=== PATIENT | female | born 1995 | race Caucasian/White ===

== ENCOUNTER 2021-05-14 19:30 | Emergency (ER) | payer OTHER ==
[~2021-05-14] VITALS: Ht 165.1 cm; Wt 59.1 kg
[2021-05-14 20:34] LABS: BASO # 0.1 x10^3/uL (0.0-0.2); BASO % 0 % (0-3); EOS % 0 % (0-3); HEMATOCRIT 36.3 % (36.0-47.0); HEMOGLOBIN 12.2 g/dL (12.0-15.5); LYMPH % 7 % (24-48); MEAN CORPUSCULAR HEMOGLOBIN 31 pg (25-35); MEAN CORPUSCULAR HGB CONC 34 g/dL (31-37); MEAN CORPUSCULAR VOLUME 92 fL (79-100); MONO # 0.8 x10^3/uL (0.0-1.1); MONO % 6 % (0-9); NEUT # 12.3 x10^3/uL (1.8-7.7); NEUT % 87 % (31-73); PLATELET COUNT 206 x10^3/uL (140-400); RED BLOOD COUNT 3.97 x10^6/uL (3.50-5.40); RED CELL DISTRIBUTION WIDTH 12.7 % (11.5-14.5); WHITE BLOOD COUNT 14.1 x10^3/uL (4.0-11.0)
[2021-05-14 20:40] LABS: CALCIUM 8.9 mg/dL (8.5-10.1); CREATININE 0.9 mg/dL (0.6-1.0); GFR 76.9; POTASSIUM 4.2 mmol/L (3.5-5.1)
[2021-05-14 20:47] LABS: ALBUMIN 4.1 g/dL (3.4-5.0); ALBUMIN/GLOBULIN RATIO 1.6 (1.0-1.7); TOTAL BILIRUBIN 0.2 mg/dL (0.2-1.0); TOTAL PROTEIN 6.6 g/dL (6.4-8.2)
[2021-05-14] MEDS: POLYVINYL ALCOHOL 1.4% OPHTH SOLUTION 15ML BOTTLE. OU PRN (22:00)
[2021-05-14 22:51] LABS: BARBITURATES NEG (NEG); BENZODIAZEPINES NEG (NEG); CANNABINOIDS NEG (NEG); COCAINE NEG (NEG); METHADONE NEG (NEG); OPIATES NEG (NEG); PHENCYCLIDINE NEG (NEG)
[2021-05-14 22:54] LABS: AMPHETAMINE/METHAMPHETAMINE NEG (NEG)
--- NOTE | 2021-05-14 23:17 | PHYS DOC ---
Past Medical History Past Medical History: Anxiety, Schizophrenia Past Surgical History: Tonsillectomy Smoking Status: Current Some Day Smoker Additional Information: VAPES OCCASIONALLY Alcohol Use: None Drug Use: None, Other (Ketamine) General Adult EDM: Chief Complaint: PSYCH EVALUATION HPI: HPI: Patient is a 25 year old female who presents with her mother for psychiatric evaluation. Patient and her mother both provide history. Earlier today, patient left her home and went swimming in the [place] behind her house. She states that the geese told her to do it, in order to "find an egg they had left" for her. She states also her "ancestors," her "people," encouraged her to swim in the like as well. Patient reports she lives with her mother, Man and "ashley White" Jose Elias. She states that Jose Elias is a "gimp," and "wants to sleep with" her. Patient reports she is 4 months , though mom is unsure how this would be possible. She had a test on her admission to [facility] recently, which was negative. Patient has no physical complaints of pain or otherwise at this time. Patient was seen about 3-1/2 weeks ago at [facility] and admitted to inpatient psychiatric facility for newly diagnosed schizophrenia. After her stay in the inpatient facility, she was discharged home with prescriptions for Haldol p.o. and hydroxyzine p.o. Patient states that the hydroxyzine did help her anxiety, however the Haldol was "too strong." Patient's mother did not force her to take medications, as the patient is an adult and mom wanted to make sure she was in control of her own medical decisions. At this time, patient does seek readmission to psychiatric facility for reevaluation and restabilization. She wishes to be placed on an antipsychotic other than Haldol, with which she may be more compliant. Review of Systems: Review of Systems: Constitutional: Denies fever, chills or generalized weakness Eyes: Denies change in visual acuity, visual field deficits or discharge HENT: Denies ear pain, nasal congestion or sore throat Respiratory: Denies cough or shortness of breath Cardiovascular: Denies chest pain, palpitations or edema GI: Denies abdominal pain, nausea, vomiting, bloody stools or diarrhea : Denies dysuria or hematuria Musculoskeletal: Denies back pain or joint pain Integument: Denies rash or other skin lesion Neurologic: Denies headache, focal weakness or sensory changes Psychiatric: See HPI Heart Score: C/O Chest Pain: No Current Medications: Current Medications Medications (Trade) Dose Ordered Sig/C[place]orro Start Time Stop Time Status Last Admin Dose Admin Glycerin/ Hypromellose/ Polyethylene (Artificial Tears) 1 drop PRN Q15MIN PRN 05/14/21 21:30 Allergies: Allergies: Allergies Coded Allergies Type Severity Reaction Last Updated Verified No Known Drug Allergies 05/14/21 No Physical Exam: PE: Constitutional: Well developed, well nourished, no acute distress, non-toxic appearance, patient is disheveled and has dirt diffusely across her body. HENT: Normocephalic, atraumatic, bilateral external ears normal, nose normal. Eyes: PERRL, EOMI, conjunctiva normal, no discharge. Nearly fully healed ecchymosis noted around left eye. Neck: Normal range of motion, no stridor. Cardiovascular: Heart regular rate and rhythm. No apparent murmurs, rubs or gallops. Lungs & Thorax: Equal thoracic expansion, no increased work of breathing, all lung akers clear to auscultation. Skin: Warm, dry, no erythema, no rash, no abrasions, no lacerations. Extremities: No cyanosis, no clubbing, ROM intact, no edema. Neurologic: Alert and oriented x4, letter and sensory function grossly intact, steady and symmetrical upright gait, no focal deficits noted. Psychologic: Flat affect, poor judgment, fair insight. Current Patient Data: Labs: Laboratory Tests Test 05/14/21 20:27 05/14/21 22:33 White Blood Count 14.1 x10^3/uL (4.0-11.0) H Red Blood Count 3.97 x10^6/uL (3.50-5.40) Hemoglobin 12.2 g/dL (12.0-15.5) Hematocrit 36.3 % (36.0-47.0) Mean Corpuscular Volume 92 fL (79-100) Mean Corpuscular Hemoglobin 31 pg (25-35) Mean Corpuscular Hemoglobin Concent 34 g/dL (31-37) Red Cell Distribution Width 12.7 % (11.5-14.5) Platelet Count 206 x10^3/uL (140-400) Neutrophils (%) (Auto) 87 % (31-73) H Lymphocytes (%) (Auto) 7 % (24-48) L Monocytes (%) (Auto) 6 % (0-9) Eosinophils (%) (Auto) 0 % (0-3) Basophils (%) (Auto) 0 % (0-3) Neutrophils # (Auto) 12.3 x10^3/uL (1.8-7.7) H Lymphocytes # (Auto) 1.0 x10^3/uL (1.0-4.8) Monocytes # (Auto) 0.8 x10^3/uL (0.0-1.1) Eosinophils # (Auto) 0.0 x10^3/uL (0.0-0.7) Basophils # (Auto) 0.1 x10^3/uL (0.0-0.2) Maternal Serum HCG Beta Subunit 1 mIU/mL (0-5) Sodium Level 144 mmol/L (136-145) Potassium Level 4.2 mmol/L (3.5-5.1) Chloride Level 107 mmol/L (98-107) Carbon Dioxide Level 27 mmol/L (21-32) Anion Gap 10 (6-14) Blood Urea Nitrogen 13 mg/dL (7-20) Creatinine 0.9 mg/dL (0.6-1.0) Estimated GFR (Cockcroft-Gault) 76.9 BUN/Creatinine Ratio 14 (6-20) Glucose Level 93 mg/dL (70-99) Calcium Level 8.9 mg/dL (8.5-10.1) Total Bilirubin 0.2 mg/dL (0.2-1.0) Aspartate Amino Transferase (AST) 20 U/L (15-37) Alanine Aminotransferase (ALT) 19 U/L (14-59) Alkaline Phosphatase 53 U/L (46-116) Total Protein 6.6 g/dL (6.4-8.2) Albumin 4.1 g/dL (3.4-5.0) Albumin/Globulin Ratio 1.6 (1.0-1.7) Urine Opiates Screen Neg (NEG) Urine Methadone Screen Neg (NEG) Urine Barbiturates Neg (NEG) Urine Phencyclidine Screen Neg (NEG) Urine Amphetamine/Methamphetamine Neg (NEG) Urine Benzodiazepines Screen Neg (NEG) Urine Cocaine Screen Neg (NEG) Urine Cannabinoids Screen Neg (NEG) Urine Ethyl Alcohol Neg (NEG) Laboratory Tests 05/14/21 20:27 Laboratory Tests 05/14/21 20:27 Vital Signs: Vital Signs Date Time Temp Pulse Resp B/P (MAP) Pulse Ox O2 Delivery O2 Flow Rate FiO2 05/14/21 22:15 80 21 132/72 (92) 100 Room Air 05/14/21 19:30 98.3 98.3 Course & Med Decision Making: Course & Med Decision Making Pertinent Labs and Imaging studies reviewed. (See chart for details) Patient is a 25-year-old female who presents for psychiatric evaluation after recently being diagnosed with schizophrenia and not taking medications prescribed. After talking to the patient and noticing flat affect, somewhat disheveled appearance, and hallucinations/delusions, Luis with psychiatric assessment team was paged. Pended a bedside evaluation of the patient and discussed case with her mother as well. At this time, patient meets criteria for inpatient admission. Lab work and assessment were faxed to [facility] psychiatric facility. Currently waiting on acceptance/bed placement. Patient care was transferred to Dr. Taylor, attending in emergency department. Thorough signout was provided. Kristian Disclaimer: Kristian Disclaimer: This electronic medical record was generated, in whole or in part, using a voice recognition dictation system. Departure Departure Impression: Primary Impression: Schizophrenia, unspecified Qualified Codes: F20.9 - Schizophrenia, unspecified [facility] Condition: STABLE HIRA SHER May 14, 2021 23:17
[2021-05-15] MEDS ORDERED: ZOLPIDEM 5 MG TABLET. PO ONE (02:04)
[2021-05-15] MEDS: POLYVINYL ALCOHOL 1.4% OPHTH SOLUTION 15ML BOTTLE. OU PRN (02:11)
[2021-05-15] MEDS: risperiDONE 0.25 MG TABLET. PO SCH (21:58)
[2021-05-15] MEDS: BENZTROPINE MESYLATE 1 MG TABLET. PO SCH (21:58)
[2021-05-16] MEDS: risperiDONE 0.25 MG TABLET. PO SCH (09:46)
[2021-05-16] MEDS: BENZTROPINE MESYLATE 1 MG TABLET. PO SCH (09:46)
[2021-05-16 18:42] VITALS: BP 135/87
== END 2021-05-16 22:13 ==
LOC: ER 19:30
DX: F20.9 Schizophrenia, unspecified (principal); Z20.822 Contact with and (suspected) exposure to COVID-19; F17.200 Nicotine dependence, unspecified, uncomplicated
CPT/HCPCS: 36415; 80053; 80307; 84702; 85025; 87426; 99285; U0003